=== PATIENT | male | born 1985 ===

== ENCOUNTER 2018-08-05 11:53 | Emergency (ER) | payer OTHER ==
[~2018-08-05] VITALS: Ht 170.2 cm; Wt 68.0 kg
== END 2018-08-05 14:18 | disposition home or self-care (01) ==
LOC: ER 11:53
DX: S40.012A Contusion of left shoulder, initial encounter (principal); W18.39XA Other fall on same level, initial encounter; Y93.89 Activity, other specified; Y92.89 Other specified places as the place of occurrence of the external cause; Y99.8 Other external cause status